=== PATIENT | female | born 1985 | race Caucasian/White ===

== ENCOUNTER 2018-03-20 12:04 | Emergency (ER) | payer MEDICAID ==
[~2018-03-20] VITALS: Ht 160 cm; Wt 48.0 kg
[2018-03-20] MEDS ORDERED: OXYC10TA6 PO (12:25)
[2018-03-20 12:58] LABS: BASOPHILS # (AUTO) 0.06 x10^3/uL (0-0.1); BASOPHILS % (AUTO) 1 % (0-1); EOSINOPHILS # (AUTO) 0.07 x10^3/uL (0-0.4); EOSINOPHILS % (AUTO) 2 % (1-7); LYMPHOCYTES # (AUTO) 1.58 x10^3/uL (1-3.4); LYMPHOCYTES % (AUTO) 38 % (22-44); MD NO; MEAN CORPUSCULAR HEMOGLOBIN 27.6 pg (27.0-34.8); MEAN CORPUSCULAR HGB CONC 32.8 g/dL (32.4-35.8); MEAN CORPUSCULAR VOLUME 84.2 fL (80-100); MEAN PLATELET VOLUME 10.3 fL (7.4-10.4); MONOCYTES # (AUTO) 0.43 x10^3/uL (0.2-0.8); MONOCYTES % (AUTO) 10 % (2-9); NEUTROPHILS # (AUTO) 2.08 x10^3/uL (1.8-6.8); NEUTROPHILS % (AUTO) 49 % (42-75); PLATELET COUNT 200 x10^3/uL (130-400); RED BLOOD COUNT 4.92 x10^6/uL (3.82-5.3)
[2018-03-20 13:10] LABS: ALANINE AMINOTRANSFERASE 77 U/L (12-78); ALBUMIN 3.4 g/dL (3.4-5.0); ANION GAP 6 mmol/L (5-15); CALCIUM 9.6 mg/dL (8.5-10.1); CHLORIDE 109 mmol/L (98-107); CREATININE 0.66 mg/dL (0.55-1.02)
[2018-03-20 13:15] LABS: ALKALINE PHOSPHATASE 95 U/L (45-117); BILIRUBIN,TOTAL 0.6 mg/dL (0.2-1.0); TOTAL PROTEIN 6.5 g/dL (6.4-8.2)
[2018-03-20 13:45] VITALS: BP 94/50
[2018-03-20 13:57] LABS: MICROSCOPIC NOT IND
[2018-03-20 14:04] LABS: CULTURE INDICATED? NO
== END 2018-03-20 14:30 | disposition home or self-care (01) ==
LOC: ED 14:24
DX: E11.65 Type 2 diabetes mellitus with hyperglycemia (principal); R63.4 Abnormal weight loss; Z88.5 Allergy status to narcotic agent
CPT/HCPCS: 36415; 80053; 81003; 82962; 84703; 85025; 99284

== ENCOUNTER 2019-12-11 18:56 | Emergency (ER) | payer SELFPAY ==
[~2019-12-11] VITALS: Ht 160 cm; Wt 56.1 kg
[~2019-12-11 18:56] MED LIST: OXYC10TA6 PO
[2019-12-11 19:09] VITALS: BP 149/84
== END 2019-12-11 21:34 | disposition home or self-care (01) ==
LOC: ED 19:42
DX: J01.00 Acute maxillary sinusitis, unspecified (principal); R73.9 Hyperglycemia, unspecified; R51 Headache; H53.8 Other visual disturbances; Z86.39 Personal history of other endocrine, nutritional and metabolic disease
CPT/HCPCS: 70450; 99284